=== PATIENT | female | born 1985 | race Caucasian/White ===

== ENCOUNTER 2024-04-19 14:08 | Inpatient (IN) ==
--- NOTE | 2024-04-19 14:39 | Emergency Department Note ---
Impression & Plan Closed fracture dislocation of ankle joint ED Provider Note HISTORY OF PRESENT ILLNESS: Patient is a 39-year-old female presenting with right ankle pain. Patient reports she was hiking this morning when she was coming downhill and holding onto a tree, but she slipped and fell on some leaves and her right ankle went backwards and she had immediate pain and deformity. States that she was unable to get up on her own secondary to instability in her ankle. She states that it seemed to be "flopping around." She denies striking her head or loss of consciousness. She reports that she landed on her buttock. She denies any anticoagulation use. She denies any abdominal pain. Denies any chest pain or shortness of breath. ROS: as above PHYSICAL EXAM: Constitutional: Patient appears in no acute distress. HENT: Head: Normocephalic and atraumatic. Eyes: EOMI, PERRL Mouth/Throat: Mucous membranes moist. Neck: Trachea midline. Neck supple. Musculoskeletal: - EXTREMITY= RLE - Deformity: Obvious deformity to the ankle - Skin / Wounds: Diffuse swelling and ecchymosis to the anterior ankle and to the bilateral malleoli. No open wounds - Pain: Tender to palpation overlying the medial malleolus. Patient is unable to range the ankle secondary to pain. Able to wiggle toes. Able to flex and extend at the knee. - Sensory: SILT throughout (S/S/T/DP/SP nerve distributions) - Motor: Intact (+EHL/FHL/ADF/APF) - Vascular: Brisk cap refill, palpable pulses (2+ DP/PT) Skin: Warm and dry. No rash, erythema, pallor or cyanosis Psychiatric: Appropriate mood and affect for situation. Neurological: Alert and keenly responsive. CN II-XII grossly intact, moving all extremities equally and fully. MDM: - Vitals signs stable. - History obtained via patient. History as above. - Chronic conditions affecting care: none - Differential diagnoses include, but are not limited to: ankle fracture; ankle dislocation; ankle sprain - Order placed for continuous cardiac monitoring. At this time, monitor showed rate of 86 bpm with normal sinus rhythm, per my interpretation. - External medical records reviewed. - IV access obtained to administer pain medications. Patient was given 25 mcg IV fentanyl and 1 g IV Tylenol. - Xray right ankle showed ankle fracture dislocation, per my interpretation. Noted to have widening of the ankle mortise. Radiology notes acute oblique displaced and comminuted distal right fibular fracture with disruption of the ankle mortise. - Xray right tib-fib shows tibiotalar subluxation compatible with distal tibial or fibular syndesmotic and medial ligamentous injuries. - Discussed case with orthopedic surgeon on-call, Dr. Grigsby, at 15:11. He requested that x-rays be performed postreduction in a splint and then get an MRI without contrast of the ankle. Plans to admit to his service for surgical fixation tomorrow. - Patient was given an additional 50 mcg IV fentanyl and reduction of the ankle was performed by myself. Please see procedure note below. She was then placed in a posterior ankle splint and ankle stirrup. Postreduction x-ray shows improved alignment per my interpretation. - Pre op labs, CXR and EKG ordered. - EKG interpreted by myself showed normal sinus rhythm. Rate 79 bpm. QT 390. No acute ischemic changes. - Laboratory workup interpreted by myself showed normal WBC; stable electrolytes; negative hCG - CXR negative for pneumonia, per my interpretation. - Patient admitted to inpatient orthopedic surgery service for further evaluation and management. PROCEDURE: 1. Ankle Dislocation Reduction Indication: right ankle fracture dislocation Verbal consent obtained. Risks and benefits were explained with the usual customary discussion. A time out was taken. Neurovascular examination before the procedure revealed patient able to wiggle toes, sensation intact to light touch throughout nerve distributions of foot and intact PT pulse. The knee was flexed to 90 degrees and countertraction was supplied by nursing staff. I pulled traction on the ankle and rotated the foot medially to help try to close the mortise. "Pop" was felt with movement and this resulted in an easy reduction without complication. Neurovascular examination after the procedure revealed patient able to wiggle toes, sensation intact to light touch throughout nerve distributions of foot and intact PT pulse. The patient had significant pain relief and tolerated the procedure well. Splints applied as below. 2. Splinting Indication: ankle fracture dislocation Verbal consent obtained. Risks and benefits were explained with the usual customary discussion. The injured extremity was identified. The patient was prepped and measured for the placement of a posterior short leg and ankle stirrup ortho-glass splint. Splint applied in the standard fashion over a layer of webril and secured using an elastic bandage. Set into a position of function. Normal neurovascular status after placement verified by me. The patient tolerated the procedure well and the care of the splint was discussed with the patient/family. No complications. ASSESSMENT AND PLAN: Diagnosis: closed fracture dislocation of ankle joint Plan: admit Past Med/Surg History Problem List Closed fracture dislocation of ankle joint (Acute) Social History Smoking Status: Never smoker Preferred Language: [place] Feels Safe at Home: Yes Allergies Allergies Allergy/AdvReac Type Severity Reaction Status Date / Time No Known Allergies Allergy Unverified 04/19/24 14:47 Home Meds Home Medications Medication Instructions Recorded Confirmed norethindrone 1.5 mg-ethinyl 1 tab PO DAILY 04/19/24 04/19/24 estradiol 30 mcg(21)/iron 75 mg(7) tablet (Junel FE 1.5/30 (28)) Results & Data (ED) Vital Signs Vital Signs - 24 hr 04/19/24 13:59 04/19/24 15:00 04/19/24 16:39 Temperature 36.6 C Temperature Source Oral Pulse Rate 83 Pulse Rate [Right Finger] 86 99 H Respiratory Rate 18 18 18 Respiratory Effort / Characteristics Non-Labored Spontaneous Non-Labored Spontaneous Non-Labored Spontaneous Respiratory Depth Normal Normal Normal Respiratory Pattern Regular Regular Regular Blood Pressure 132/90 Blood Pressure [Right Arm] 129/89 126/90 Blood Pressure Mean 104 Blood Pressure Mean [Right Arm] 102 102 Pulse Oximetry 99 97 97 Oxygen Delivery Method Room Air Room Air Room Air Sepsis Recent Fever Within 48 Hours No Sepsis New/Unexplained Change in Mental Status N/A Sepsis Action Taken by Nursing No Action Required Laboratory Data 04/19/24 16:20 04/19/24 16:20 Lab Results 04/19/24 Range/Units 16:20 WBC 10.96 H (4.8-10.8) K/ul RBC 4.20 (4.20-5.40) M/uL Hgb 13.9 (12.0-16.0) g/dl Hct 39.7 (37.0-47.0) % MCV 94.5 (80.0-100.0) fL MCH 33.1 (25.0-34.0) pg MCHC 35.0 (32.0-36.0) g/dL RDW Std Deviation 39.8 (36.4-46.3) fL RDW Coeff of Thee 11.5 (11.5-14.5) % Plt Count 238 (130-400) K/uL MPV 10.7 (9.4-12.4) fL Immature Gran % (Auto) 0.5 % Neut % (Auto) 84.8 % Lymph % (Auto) 9.3 % [place] % (Auto) 4.8 % Eos % (Auto) 0.1 % Baso % (Auto) 0.5 % Neut # (Auto) 9.29 H (1.40-6.50) K/uL Lymph # (Auto) 1.02 L (1.20-3.40) K/uL [place] # (Auto) 0.53 (0.11-0.59) K/uL Eos # (Auto) 0.01 (0.00-0.50) K/uL Baso # (Auto) 0.06 (0.00-0.20) K/uL Immature Gran # (Auto) 0.05 (0.01-0.20) K/uL PT 10.6 (9.0-12.0) Seconds INR 1.0 (0.9-1.1) Sodium 137 (136-145) mmol/L Potassium 4.1 (3.5-5.1) mmol/L Chloride 104 (98-107) mmol/L Carbon Dioxide 26 (21-32) mmol/L Anion Gap 7 (3-11) BUN 15 (6-23) mg/dl Creatinine 0.77 (0.6-1.2) mg/dl Est Cr Clr Drug Dosing 94.1 ml/min eGFR 99.94 BUN/Creatinine Ratio 19.5 (10-20) Glucose 105 H (70-99(Fasting)) mg/dl Calcium 9.5 (8.6-10.3) mg/dl HCG, Qual Negative (Negative) Administered Medications Discontinued Medications Fentanyl Citrate (Fentanyl Citrate Pf 100 Mcg/2 Ml Vial) 25 mcg IV NOW STA Stop: 04/19/24 14:36 Last Admin: 04/19/24 14:49 Dose: 25 mcg Documented By: LOAN Fentanyl Citrate (Fentanyl Citrate Pf 100 Mcg/2 Ml Vial) 50 mcg IV NOW STA Stop: 04/19/24 15:21 Last Admin: 04/19/24 15:30 Dose: 50 mcg Documented By: LOAN Acetaminophen (Ofirmev) 1,000 mg in 100 mls @ 400 mls/hr IV NOW STA Stop: 04/19/24 14:49 Last Infusion: 04/19/24 15:03 Dose: Infused Documented By: Admin: 04/19/24 14:48 Dose: 400 mls/hr Documented By: LOAN Ondansetron HCl (Ondansetron Inj 2 Mg/Ml 2 Ml Vial) 4 mg IV NOW STA Stop: 04/19/24 14:44 Last Admin: 04/19/24 14:47 Dose: 4 mg Documented By: LOAN Imaging Data Radiologist's Impression: Ankle X-Ray 04/19/24 14:35 XR ankle RT 2V HISTORY: 39 years-old Female R ankle pain s/p fall acute right ankle pain status post fall COMPARISON: Tibia and fibula radiographs of same day TECHNIQUE: 3 views of the right ankle FINDINGS: Pathologic poststenotic widening of the medial clear space of the ankle, 1.4 cm. The distal tibiofibular syndesmosis is widened at 9 mm. There is an acute obliquely oriented mildly comminuted distal fibular fracture demonstrating 6 mm lateral at 1.3 cm posterior displacement. Moderate circumferential soft tissue swelling of the ankle. Tibiotalar subluxation. IMPRESSION: 1. Acute, comminuted and displaced distal fibular fracture. 2. Tibiotalar subluxation compatible with associated distal tibial fibular syndesmotic and medial ligamentous injuries. ACT 112: Negative or not required by law. The above report was generated using voice recognition software. It may contain grammatical, syntax or spelling errors. Electronically signed by: Chay Powell M.D. 04/19/2024 3:23 PM Tibia/Fibula X-Ray 04/19/24 14:35 XR tibia fibula RT 2V CLINICAL HISTORY: R ankle pain s/p fall COMPARISON: None FINDINGS: No proximal right fibular fracture is present. There is no right tibial fracture. There is an acute comminuted oblique displaced distal right fibular fracture. Fracture is displaced 1.3 cm. Medial ankle mortise widening is present. IMPRESSION: 1. Acute oblique displaced and comminuted distal right fibular fracture, as described above. 2. Disruption of the ankle mortise with medial ankle mortise widening. 3. No proximal right fibular fracture. No right tibial fracture. ACT 112: Negative or not required by law. Electronically signed by: Darrick Jonas M.D. 04/19/2024 3:17 PM Ankle X-Ray 04/19/24 15:50 EXAM: Radiographs of the Right Ankle 2 Views INDICATION: Post reduction TECHNIQUE: Frontal and lateral views of the right ankle. COMPARISON: No relevant prior studies available. FINDINGS: Limitations: None. Bones/joints: Lucent fracture line noted obliquely on the lateral view suspected to be in the fibula. Normal AP alignment. There is mild widening of the medial mortise. No dislocation. Soft tissues: No abnormality noted. Plaster cast in place. IMPRESSION: 1. Anatomic alignment fracture of the fibula post cast. 2. Widening of the medial mortise. ACT 112: Negative or not required by law. Electronically signed by Dana Still 04-19-2024 4:17 PM Chest X-Ray 04/19/24 16:06 EXAM: Radiograph of the Chest 1 View INDICATION: Undergoing preoperative evaluation. TECHNIQUE: Frontal view of the chest. COMPARISON: No relevant prior studies available. FINDINGS: Lungs and pleural spaces: No consolidation or pulmonary edema. No pleural effusion or pneumothorax. Heart: Shape and configuration within normal limits allowing for technique. Mediastinum: Normal contour. Bones/joints: No fracture, erosion or dislocation. Soft tissues: No abnormality noted. No radiopaque foreign body noted. Upper abdomen: No abnormality noted. IMPRESSION: No abnormality noted. ACT 112: Negative or not required by law. Electronically signed by Daan Still 04-19-2024 4:49 PM Discharge Plan Visit Data Chief Complaint: Ankle Pain Stated Complaint: Ankle Pain ED Provider: Judith Eaton Discharge Problem: Closed fracture dislocation of ankle joint Forms Stand Alone Forms: [facility] Prescriptions Prescriptions: No Action norethindrone-e.estradiol-iron [ FE 1.5/30 (28)] 1.5 mg-30 mcg (21)/75 mg (7) Tablet 1 tab PO DAILY Referrals Referrals: PCP,NO [Primary Care Provider] -
[2024-04-19] MEDS: ONDANSETRON INJ 2 MG/ML 2 ML VIAL IV STA (14:47)
[2024-04-19] MEDS: ACETAMINOPHEN 1,000 MG/100 ML VIAL IV STA (14:48)
[2024-04-19] MEDS: fentaNYL citrate PF 100 MCG/2 ML VIAL IV STA ×2 (14:49→15:30)
--- NOTE | 2024-04-19 15:18 | XRay Report ---
XR tibia fibula RT 2V CLINICAL HISTORY: R ankle pain s/p fall COMPARISON: None FINDINGS: No proximal right fibular fracture is present. There is no right tibial fracture. There is an acute comminuted oblique displaced distal right fibular fracture. Fracture is displaced 1.3 cm. M edial ankle mortise widening is present. IMPRESSION: 1. Acute oblique displaced and comminuted distal right fibular fracture, as described above. 2. Disruption of the ankle mortise with medial ankle mortise widening. 3. No proximal right fibular fracture. No right tibial fracture. ACT 112: Negative or not required by law. Electronically signed by: Darrick Jonas M.D. 04/19/2024 3:17 PM
--- NOTE | 2024-04-19 15:26 | XRay Report ---
XR ankle RT 2V HISTORY: 39 years-old Female R ankle pain s/p fall acute right ankle pain status post fall COMPARISON: Tibia and fibula radiographs of same day TECHNIQUE: 3 views of the right ankle FINDINGS: Pathologic poststenotic widening of the medial clear space of the ankle, 1.4 cm. The distal tibiofibu lar syndesmosis is widened at 9 mm. There is an acute obliquely oriented mildly comminuted distal fib ular fracture demonstrating 6 mm lateral at 1.3 cm posterior displacement. Moderate circumferential s oft tissue swelling of the ankle. Tibiotalar subluxation. IMPRESSION: 1. Acute, comminuted and displaced distal fibular fracture. 2. Tibiotalar subluxation compatible with associated distal tibial fibular syndesmotic and medial lig amentous injuries. ACT 112: Negative or not required by law. The above report was generated using voice recognition software. It may contain grammatical, syntax o r spelling errors. Electronically signed by: Chay Powell M.D. 04/19/2024 3:23 PM
--- NOTE | 2024-04-19 16:18 | XRay Report ---
EXAM: Radiographs of the Right Ankle 2 Views INDICATION: Post reduction TECHNIQUE: Frontal and lateral views of the right ankle. COMPARISON: No relevant prior studies available. FINDINGS: Limitations: None. Bones/joints: Lucent fracture line noted obliquely on the lateral view suspected to be in the fibula. Normal AP alignment. There is mild widening of the medial mortise. No dislocation. Soft tissues: No abnormality noted. Plaster cast in place. IMPRESSION: 1. Anatomic alignment fracture of the fibula post cast. 2. Widening of the medial mortise. ACT 112: Negative or not required by law. Electronically signed by Dana Still 04-19-2024 4:17 PM
--- NOTE | 2024-04-19 16:22 | Orthopedic Consultation ---
Date of Consultation April 19, 2024 Assessment & Plan (1) Closed fracture dislocation of ankle joint: Patient was seen in the emergency department. I advised her that her fracture needs to be surgically fixated. Patient agrees. Informed consent to perform an open reduction internal fixation of right ankle fracture, with syndesmosis stabilization, possible deltoid ligament repair was obtained. Patient was admitted under our service. OR was contacted and we will plan on surgical intervention tomorrow morning at 730. Patient was placed into a posterior U- splint's after being reduced by the ED physician. Preoperative orders were placed. Patient will be n.p.o. after midnight tonight. Supervising Physician Co-Signing Physician Notes I saw and examined the patient, reviewed her imaging, formulated the above plan, performed the substantive portion of the visit, and agree with the above above note. History of Present Illness Reason for Consultation: Right ankle fracture Requesting Physician: Pollo Jacobo MD History of Present Illness Patient is a 39-year-old female presenting with right ankle pain. Patient reports she was hiking this morning when she was coming downhill and holding onto a tree, but she slipped and fell on some leaves and her right ankle went backwards and she had immediate pain and deformity. States that she was unable to get up on her own secondary to instability in her ankle. She states that it seemed to be "flopping around." She denies striking her head or loss of consciousness. She reports that she landed on her buttock. She denies any anticoagulation use. She denies any abdominal pain. Denies any chest pain or shortness of breath. Allergies Allergy/AdvReac Type Severity Reaction Status Date / Time No Known Allergies Allergy Unverified 04/19/24 14:47 Home Medications Medication Instructions Recorded Confirmed Type norethindrone 1.5 mg-ethinyl 1 tab PO DAILY 04/19/24 04/19/24 History estradiol 30 mcg(21)/iron 75 mg(7) tablet ( (28)) Patient History Social History Smoking Status: Never smoker Hx Alcohol Use: No Hx Substance Use: No Preferred Language: [place] [employer] Required: No Beliefs That Will Affect Care: None Current Living Situation: Alone Other Information That Helps Us Care for You: No Feels Safe at Home: Yes Safety Concerns: Feels Safe At This Time Assistive Devices: None Review of Systems Review of Systems: All systems reviewed & are unremarkable except as noted in Subjective Physical Exam Physical Exam: Right ankle: Edema and exquisite TTP over medial and lateral malleolus. Ecchymosis over anterior aspect of ankle. ROM not tested. Able move toes and detect light sensation to touch over pads of digits. NV intact. Results & Data Vital Signs (Past 12 Hours) Vital Signs Temp Pulse Pulse Resp BP BP Pulse Ox 04/19/24 15:00 86 18 129/89 97 04/19/24 13:59 36.6 C 83 18 132/90 99 O2 Del Method 04/19/24 15:00 Room Air 04/19/24 13:59 Room Air Diagnostic Findings Impressions Tibia/Fibula X-Ray 04/19/24 14:35 XR tibia fibula RT 2V CLINICAL HISTORY: R ankle pain s/p fall COMPARISON: None FINDINGS: No proximal right fibular fracture is present. There is no right tibial fracture. There is an acute comminuted oblique displaced distal right fibular fracture. Fracture is displaced 1.3 cm. Medial ankle mortise widening is present. IMPRESSION: 1. Acute oblique displaced and comminuted distal right fibular fracture, as described above. 2. Disruption of the ankle mortise with medial ankle mortise widening. 3. No proximal right fibular fracture. No right tibial fracture. ACT 112: Negative or not required by law. Electronically signed by: Darrick Jonas M.D. 04/19/2024 3:17 PM Ankle X-Ray 04/19/24 15:50 EXAM: Radiographs of the Right Ankle 2 Views INDICATION: Post reduction TECHNIQUE: Frontal and lateral views of the right ankle. COMPARISON: No relevant prior studies available. FINDINGS: Limitations: None. Bones/joints: Lucent fracture line noted obliquely on the lateral view suspected to be in the fibula. Normal AP alignment. There is mild widening of the medial mortise. No dislocation. Soft tissues: No abnormality noted. Plaster cast in place. IMPRESSION: 1. Anatomic alignment fracture of the fibula post cast. 2. Widening of the medial mortise. ACT 112: Negative or not required by law. Electronically signed by Dana Still 04-19-2024 4:17 PM
[2024-04-19 16:49] LABS: BUN Creatinine Ratio 19.5 (10-20); Basophils # (auto) 0.06 K/uL (0.00-0.20); Basophils % (auto) 0.5 %; Calcium 9.5 mg/dl (8.6-10.3); Creatinine Clr Calc Pharmacy 94.1 ml/min; Eosinophils # (auto) 0.01 K/uL (0.00-0.50); Eosinophils % (auto) 0.1 %; Hematocrit (blood only) 39.7 % (37.0-47.0); Hemoglobin 13.9 g/dl (12.0-16.0); Immature Granulocytes # (auto) 0.05 K/uL (0.01-0.20); Immature Granulocytes % (auto) 0.5 %; Lymphocytes # (auto) 1.02 K/uL (1.20-3.40); Lymphocytes % (auto) 9.3 %; Mean Corpuscular Hemoglobin 33.1 pg (25.0-34.0); Mean Corpuscular Volume 94.5 fL (80.0-100.0); Mean Platelet Volume 10.7 fL (9.4-12.4); Monocytes # (auto) 0.53 K/uL (0.11-0.59); Monocytes % (auto) 4.8 %; Neutrophils # (auto) 9.29 K/uL (1.40-6.50); Neutrophils % (auto) 84.8 %; Platelet Count 238 K/uL (130-400); Potassium 4.1 mmol/L (3.5-5.1); RDW Coefficient of Variation 11.5 % (11.5-14.5); RDW Standard Deviation 39.8 fL (36.4-46.3); White Blood Count 10.96 K/ul (4.8-10.8)
--- NOTE | 2024-04-19 16:50 | XRay Report ---
EXAM: Radiograph of the Chest 1 View INDICATION: Undergoing preoperative evaluation. TECHNIQUE: Frontal view of the chest. COMPARISON: No relevant prior studies available. FINDINGS: Lungs and pleural spaces: No consolidation or pulmonary edema. No pleural effusion or pneumothorax. Heart: Shape and configuration within normal limits allowing for technique. Mediastinum: Normal contour. Bones/joints: No fracture, erosion or dislocation. Soft tissues: No abnormality noted. No radiopaque foreign body noted. Upper abdomen: No abnormality noted. IMPRESSION: No abnormality noted. ACT 112: Negative or not required by law. Electronically signed by Dana Still 04-19-2024 4:49 PM
[2024-04-19 16:54] LABS: Pregnancy Test, Serum Negative (Negative)
[2024-04-19 16:59] LABS: Prothrombin Time 10.6 Seconds (9.0-12.0)
--- NOTE | 2024-04-19 18:46 | Magnetic Resonance Report ---
EXAM: MR ankle RT wo con CLINICAL HISTORY: RIGHT DISTAL FIBULA FX TODAY WHEN HIKING PAIN. PT HAVING SURGERY TOMORROW MORNING INPATIENT TECHNIQUE: Multiplanar multi-sequential MRI of the right ankle joint was performed without IV contrast administration. Images were sent through PACS for diagnostic interpretation. COMPARISON: None. FINDINGS: Bones: Oblique fracture of the lateral malleolus and distal fibular metaphysis extending through the tibiofibular syndesmosis with gapping estimated 4.1 mm. Subtle marrow edema at the posterior aspect of the distal tibia and tarsal bones. Joints: Normal appearance of the subtalar, and other ankle joints. Mild to moderate ankle joint effusion. Articular surfaces are smooth without erosions or osteophyte formation. Compartmental tendons: The tibialis posterior, flexor digitorum, and flexor hallucis longus are unremarkable. Fluid is seen tracking along the tibialis posterior tendon sheath. The tibialis anterior, extensor digitorum, and extensor hallucis longus are unremarkable. The peroneus longus and brevis are unremarkable. The Achilles tendon is intact in its signal characteristics, and the pre-Achilles fat is clear. Articulations: The articulations of the tibiotalar, posterior subtalar, talonavicular anterior, subtalar, cuboidometatarsal, cuneometatarsal, intertarsal, and tarsometatarsal were unremarkable. Sinus tarsi and plantar fascia: The sinus tarsi are unremarkable. The plantar fascia is unremarkable. Ligaments: The deltoid ligament Shows fuzzy outlines with abnormal high signal. The calcaneofibular ligament is intact. Intact anterior and posterior talofibular ligament. The intertarsal ligaments are unremarkable. The Calcaneocuboid and calcaneonavicular ligament are intact. Intact, intertarsal ligaments. Intact cuneometatarsal ligaments. Intact Lisfranc ligament. Muscles: No muscle atrophy or abnormal signal changes. Soft Tissues: Marked periarticular musculature. IMPRESSION: Oblique fracture of the lateral malleolus and distal fibular metaphysis extending through the tibiofibular syndesmosis. distal tibial and tarsal marrow edema. Sprained deltoid ligament. Ankle joint effusion. Fluid along the tibialis posterior tendon sheath, Electronically signed by Michael Yepez 04-19-2024 6:45 PM
[2024-04-19] MEDS: ACETAMINOPHEN 325 MG TAB PO PRN (21:43)
[2024-04-20] MEDS: oxyCODONE/ACETAMINOPHEN 5mg/325mg TAB PO PRN (01:00)
[2024-04-20] MEDS ORDERED: PROPOFOL IV EMULSION 10 MG/ML 20 ML VIAL IV ONE (07:00)
[2024-04-20] MEDS ORDERED: fentaNYL citrate PF 100 MCG/2 ML VIAL ONE ×2 (07:00→08:42)
[2024-04-20] MEDS ORDERED: LIDOCAINE 2% 2 ML VIAL/AMP(20MG/ML) INFIL ONE (07:00)
[2024-04-20] MEDS ORDERED: MIDAZOLAM HCL 1 MG/ML 2ML VIAL ONE (07:00)
[2024-04-20] MEDS ORDERED: DEXAMETHASONE SOD INJ 4 MG/ML VIAL ONE (07:00)
[2024-04-20] MEDS ORDERED: ONDANSETRON INJ 2 MG/ML 2 ML VIAL ONE (07:00)
[2024-04-20] MEDS ORDERED: ATROPINE SULFATE 0.1 MG/ML 10ML SYR IV PRN (07:21)
[2024-04-20] MEDS ORDERED: ONDANSETRON INJ 2 MG/ML 2 ML VIAL IV PRN ×2 (07:21→09:44)
[2024-04-20] MEDS ORDERED: ePHEDrine sulfate 50 MG/ML AMP IV PRN (07:21)
[2024-04-20] MEDS ORDERED: fentaNYL citrate PF 100 MCG/2 ML VIAL IV PRN (07:21)
--- NOTE | 2024-04-20 07:21 | Anesthesiology Consultation ---
Date of Service April 20, 2024 Assessment & Plan Chart Review Chart Review: Acceptable Risk for Surgery and Patient NOT seen in Pre Admission Testing Consults Requested none History Surgery Operation Date: 04/20/24 07:30 Proposed Procedures p Right Ankle Open Reduction Internal Fixation with Syndesmosis Stablilization - Pollo Jacobo MD Height/Weight Height: 5 ft 4 in Weight: 72.9 kg Allergies Allergy/AdvReac Type Severity Reaction Status Date / Time No Known Allergies Allergy Unverified 04/19/24 14:47 Medications Home Medications Medication Instructions Recorded Confirmed Last Taken norethindrone 1.5 mg-ethinyl 1 tab PO DAILY 04/19/24 04/19/24 04/18/24 09:00 estradiol 30 mcg(21)/iron 75 mg(7) tablet (Junel FE 1.5/30 (28)) Active Medications Generic Name Dose Route Start Last Admin Trade Name Freq PRN Reason Stop Dose Admin Acetaminophen 650 mg 04/19/24 16:08 04/20/24 05:38 Acetaminophen 325 Mg Tab PO 05/19/24 16:07 650 mg Q6H PRN Administration Fever or Headache Oxycodone/Acetaminophen 1 - 2 tab 04/19/24 16:08 04/20/24 01:00 Oxycodone/Acetaminophen 5mg/325mg Tab PO 05/03/24 16:07 1 tab Q4H PRN Administration Pain NPO Date Last Intake of Fluids: 04/20/24 Time Last Intake of Fluids: 05:38 Last Intake of Fluids Comment: tynenol 650 mg sips onlly Date Last Intake of Solids: 04/19/24 Time Last Intake of Solids: 22:30 Social History Smoking Status: Never smoker Hx Alcohol Use: No Hx Substance Use: No Physical Exam Vital Signs Last Vital Signs Temp 36.8 C 04/19/24 22:00 Pulse 79 04/19/24 22:00 Resp 14 04/19/24 22:00 BP 145/84 H 04/19/24 22:00 Pulse Ox 97 04/19/24 22:00 O2 Del Method Room Air 04/19/24 22:00 Testing Laboratory Results 04/19/24 16:20 04/19/24 16:20 PT 10.6 Seconds (9.0-12.0) 04/19/24 16:20 INR 1.0 (0.9-1.1) 04/19/24 16:20 Blood Type B Negative 04/19/24 16:20 Antibody Screen NEGATIVE 04/19/24 16:20
--- NOTE | 2024-04-20 07:28 | Orthopedic Progress Note ---
Date of Service April 20, 2024 Assessment & Plan (1) Closed fracture dislocation of ankle joint: Plan: Reviewed the consent form with the patient. Answered all of her questions about surgery and aftercare. Plan to proceed to the operating room this morning . May be able to discharge home after surgery depending on her pain control and mobility. Admission and Anticipated Discharge Date Admission Date: April 19, 2024 Subjective patient seen and examined this morning in the PACU. She did well overnight. Splint is fitting her well. Pain is adequately controlled. Has not anything to eat or drink since midnight. She is ready for surgery today. Physical Exam Physical Exam: Right ankle: Splint is in good position. Exposed toes are warm and well- perfused. She wiggles all of her toes. Sensory intact to light touch over the toes. Results & Data Vital Signs (Past 12 Hours) Vital Signs Temp Pulse Resp BP Pulse Ox O2 Del Method 04/19/24 22:00 Room Air 04/19/24 22:00 36.8 C 79 14 145/84 H 97 Room Air 04/19/24 20:00 93 H 18 136/85 97 Room Air
[2024-04-20] MEDS: ceFAZolin 2000MG 2,000 MG/15 ML SYR IV SCH (07:39)
[2024-04-20] MEDS ORDERED: KETOROLAC 30 MG/ML VIAL ONE (09:09)
[2024-04-20] MEDS ORDERED: PROPOFOL IV EMULSION 10 MG/ML 100 ML VIAL IV ONE (09:12)
--- NOTE | 2024-04-20 09:34 | Operative Report ---
Post Operative Report Pre & Post Diagnosis Operation Date: 04/20/24 07:30 Preoperative diagnosis: Right ankle fracture and deltoid ligament disruption. Postop diagnosis: Right ankle fracture and deltoid ligament disruption. I identified the patient and participated in the time-out.: Yes Procedure Operation Date: 04/20/24 07:30 Open reduction internal fixation right ankle fracture, and deltoid ligament repair. Surgeon Pollo Jacobo MD Fishing Tool Supervisor RATNA Garza PA-C. No resident or fellow was available to assist. Estimated Blood Loss 10 Findings Consistent with Post-Op Diagnosis Specimens None Anesthesia Type General Regional Complications none Disposition Disposition: Recovery Room Indications 39-year-old female, injured her right ankle while hiking [employer] yesterday. She slipped on some leaves and had immediate onset of pain and deformity in her ankle. She had to be brought out of the pro by emergency medical services and transported the emergency room where x-rays demonstrated a displaced lateral malleolus fracture with a large amount of medial clear space widening. She underwent a closed reduction in the emergency room and splinting. MRI was obtained which demonstrated disruption of the deltoid ligament in addition to the lateral malleolus fracture. She was seen and examined in the emergency room. This is an unstable ankle injury. Surgery was recommended to reduce and stabilize her ankle to give her the best possible long-term function. After reviewing all the risks and benefits of surgery, alternatives to surgery, and expected outcomes she elected to proceed. All questions were answered. Informed consent was signed. Description of Procedure Patient was identified in the preoperative holding area where her surgical site was marked. She was given popliteal and saphenous nerve blocks by anesthesia then brought back to the operating room where she moved onto the operating room table and general anesthesia was administered. A bump was placed underneath the operative hip. All bony prominences were padded. Perioperative antibiotics were administered. She was prepped and draped in the usual sterile fashion. Prior to incision a multidisciplinary timeout was called. All in the room were in agreement. I began by exsanguinating the limb with an Esmarch bandage. Tourniquet was inflated 250 mmHg. An 8 cm long incision was made starting at the tip of the lateral malleolus and extending proximally. I dissected down through subcutaneous tissues. Fracture hematoma was encountered was evacuated. The fibula fracture was easily identified. We searched for the superficial peroneal nerve proximally in the wound but we did not encounter it in our dissection. Fracture was then exposed subperiosteally and a small amount of soft tissue on the anterior lateral aspect of the ankle was excised in order to prevent anterolateral ankle impingement after surgery. Fracture was then anatomically reduced with a pointed tenaculum clamp. A Arthrex 4 hole distal fibular locking plate was then secured to the fibula with BB tacks. We checked the position of the plate and our fracture reduction under fluoroscopy which I was happy with. I then secured the plate proximally with two 3.5 mm cortical screws. The distal locking holes were then filled by placing each of the screws under fluoroscopic guidance in unicortical fashion. BB tacks were removed. Another 3.5 mm cortical screw was placed proximally in the plate. Once this was complete we checked a shuck test of the fibula. Syndesmosis appeared reasonably stable. Fluoroscopy was brought in. I was happy with the screw lengths and the hardware position. The fracture remained anatomically reduced. I then performed a stress test. With a valgus stress on the ankle the medial ankle joint opened up widely consistent with a deltoid ligament disruption. Therefore deltoid ligament repair was indicated. A damp sponge was placed in the lateral wound while we turned our attention to the medial aspect of the ankle. A 4 cm long incision was then made centered over the anterior aspect of the medial malleolus. I dissected down through subcutaneous tissues. Saphenous vein and nerve were identified and the wound and dissected out so they could be mobilized both anteriorly and posteriorly. We were able to immediately visualize the deltoid ligament disruption. The entirety of the anterior medial capsule had ripped off the anterior aspect of the distal tibia, and medial malleolus. The posterior tibial tendon was identified deep in the wound. The deep deltoid ligament attachment to the talu s was not easily visualized. Therefore I elected to not place an internal brace and instead simply repair the deltoid ligament using fiber tack anchors on the tibia. A total of 5 fiber tack anchors were placed starting at the most distal aspect of the medial malleolus. While placing the second anchor the brass reclaimer broke off inside of the bone. There was no metal protruding from the bone and the anchor was still stable. Therefore the metal was left in position. Once all of her anchors have been placed these were passed in horizontal mattress fashion in order to the repair of the deltoid ligament. After passing all the sutures they were tied down starting at the anterior aspect of the distal tibia and moving towards the medial malleolus. For a final 2 anchors by the medial malleolus after tying down the sutures we then passed these in a belt suspenders fashion back into the periosteum of the medial malleolus for further compression on the repair. The sutures were then cut and tied down. Fluoroscopy was brought in and we rechecked our valgus stress to the ankle. There was no longer any opening in the medial ankle. External rotation stress test was negative. Therefore no syndesmotic stabilization was indicated. Final fluoroscopic images were then and saved to the system. Wounds were irrigated with copious amounts normal saline. Tourniquet was let down to 81 minutes and meticulous hemostasis was ensured. The deep dermis was closed with 3-0 Vicryl in an inverted interrupted fashion. Skin was closed with 3 oh nylons and horizontal mattress fashion. Sterile dressing was applied followed by a well-padded posterior and U plaster slab splint holding the ankle at neutral. Patient was then awoke from anesthesia and transferred to recovery room in stable condition. Postoperative course: Patient will be readmitted to the floor from the recovery room. Assuming her pain is under good control she may discharge home later today. She will be nonweightbearing for the next 4 weeks. 2 weeks from now she we will have her splint removed and transition to a walking boot so she can remove this did begin ankle range of motion exercises. Aspirin for DVT prophylaxis. I attest to the content of the Intraoperative Record and any orders documented therein. Any exceptions are noted below.
[2024-04-20] MEDS ORDERED: oxyCODONE/ACETAMINOPHEN 5mg/325mg TAB PO PRN ×2 (09:44)
--- NOTE | 2024-04-20 09:44 | Operative Report ---
Post Operative Report Pre & Post Diagnosis Operation Date: 04/20/24 07:30 Pre-Op Diagnosis: Closed fracture dislocation of ankle joint Post-Op Diagnosis: Closed fracture dislocation of ankle joint I identified the patient and participated in the time-out.: Yes Procedure Operation Date: 04/20/24 07:30 Actual Procedures p Right Ankle Open Reduction Internal Fixation with Syndesmosis Stablilization and Deltoid Ligament Repair(Right) - Pollo Jacobo MD Surgeon Pollo Jacobo MD Roller Repairer RATNA Garza PA-C. No resident or fellow was available to assist. Estimated Blood Loss 10 Findings Consistent with Post-Op Diagnosis Specimens none Description of Procedure I was present during the entire case assisting with positioning, prepping, draping, wound retraction, wound closure, dressing and splint application. No fellow present. Please see Dr. Jacobo procedure note for specifics of the case. I attest to the content of the Intraoperative Record and any orders documented therein. Any exceptions are noted below.
--- NOTE | 2024-04-20 09:51 | Fluoroscopy Report ---
FL ankle RT 2V CLINICAL HISTORY: RIGHT ANKLE ORIF COMPARISON STUDY: Right ankle radiographs and MRI of the right ankle April 19, 2024. FLUOROSCOPY TIME: 17.2 seconds. Ka,r: 0.64 mGy FLUOROSCOPIC IMAGES: 4 FINDINGS: Fluoroscopy was provided during open reduction and internal fixation of the right ankle. Pl ate and screw fixation of the fibular fracture is noted. Alignment is anatomic. There are no unexpect ed radiopaque foreign bodies. There are also postoperative findings within the medial malleolus. Ther e are no unexpected radiopaque foreign bodies. Tibiotalar alignment is anatomic. IMPRESSION: Fluoroscopy provided during open reduction and internal fixation of the right ankle. ACT 112: Negative or not required by law. Electronically signed by: Darrick Jonas M.D. 04/20/2024 9:50 AM
[2024-04-20] MEDS: BUPIVACAINE 0.25% PF 30 ML VIAL ONE (10:33)
[2024-04-20] MEDS: ONDANSETRON INJ 2 MG/ML 2 ML VIAL IV PRN (10:34)
--- NOTE | 2024-04-20 11:09 | Anesthesiology Progress Note ---
Date of Service April 20, 2024 Anesthesia Post Procedure Vital Signs Vital Signs: Temp Pulse Pulse Pulse Resp BP BP 04/20/24 10:54 36.6 C 76 18 121/75 04/20/24 10:25 36.5 C 89 16 102/64 04/20/24 10:14 36.9 C 90 21 108/56 L 04/20/24 10:05 86 16 103/66 04/20/24 09:55 92 H 13 100/63 04/20/24 09:45 36.2 C L 82 20 102/55 L 04/19/24 22:00 04/19/24 22:00 36.8 C 79 14 04/19/24 20:00 93 H 18 04/19/24 18:00 84 18 04/19/24 16:39 99 H 18 04/19/24 15:00 86 18 04/19/24 13:59 36.6 C 83 18 132/90 BP Pulse Ox O2 Del Method O2 Flow Rate 04/20/24 10:54 97 Room Air 04/20/24 10:25 98 Room Air 04/20/24 10:14 96 Room Air 04/20/24 10:05 98 Room Air 04/20/24 09:55 99 Oxymask 5 04/20/24 09:45 97 Oxymask 5 04/19/24 22:00 Room Air 04/19/24 22:00 145/84 H 97 Room Air 04/19/24 20:00 136/85 97 Room Air 04/19/24 18:00 125/88 97 Room Air 04/19/24 16:39 126/90 97 Room Air 04/19/24 15:00 129/89 97 Room Air 04/19/24 13:59 99 Room Air Pain Intensity Right Ankle: Pain Intensity: 4 Transfer of Care Handoff Completed per policy Notes Mental Status: alert / awake / arousable Patient Amnestic to Procedure: Yes Nausea / Vomiting: adequately controlled Pain: adequately controlled Airway Patency, RR, SpO2: stable & adequate BP & HR: stable & adequate Hydration State: stable & adequate Anesthetic Complications: no major complications apparent and Pt Satisfied with anesthetic care
[2024-04-20 11:54] VITALS: RESP 16
[2024-04-20 13:23] VITALS: TEMP 98.8; O2SAT 97
[2024-04-20] MEDS: INFLUENZA VACC TS2024-25(6m+)/PF (IIV3) 0.5mL Syr IM ONE (14:08)
[2024-04-20 14:35] VITALS: BP 145/84; PULSE 76
--- NOTE | 2024-04-21 20:49 | Electrocardiogram Report ---
Test Reason : Blood Pressure : */* mmHG Vent. Rate : 79 BPM Atrial Rate : 79 BPM P-R Int : 114 ms QRS Dur : 76 ms QT Int : 390 ms P-R-T Axes : 53 20 28 degrees QTcB Int : 447 ms Normal sinus rhythm Normal ECG No previous ECGs available Confirmed by Piyush Ledezma ([id number]) on 04/21/2024 8:48:43 PM Referred By: NO PCP Confirmed By: Piyush Ledezma
--- NOTE | 2024-04-22 14:21 | Discharge Summary ---
Date of Service April 22, 2024 Admission HPI Per Admitting Provider Patient is a 39-year-old female presenting with right ankle pain. Patient reports she was hiking this morning when she was coming downhill and holding onto a tree, but she slipped and fell on some leaves and her right ankle went backwards and she had immediate pain and deformity. States that she was unable to get up on her own secondary to instability in her ankle. She states that it seemed to be "flopping around." She denies striking her head or loss of consciousness. She reports that she landed on her buttock. She denies any anticoagulation use. She denies any abdominal pain. Denies any chest pain or shortness of breath. Admission Exam Per Admitting Provider Right ankle: Edema and exquisite TTP over medial and lateral malleolus. Ecchymosis over anterior aspect of ankle. ROM not tested. Able move toes and detect light sensation to touch over pads of digits. NV intact. Principal Diagnosis Right ankle fracture; deltoid ligament tear Discharge Exam Right ankle: Edema and exquisite TTP over medial and lateral malleolus. Ecchymosis over anterior aspect of ankle. ROM not tested. Able move toes and detect light sensation to touch over pads of digits. NV intact. Discharge Data Allergies Allergy/AdvReac Type Severity Reaction Status Date / Time No Known Allergies Allergy Unverified 04/19/24 14:47 Consultations 04/19/24 16:05 ED Decision to Admit Stat Procedures Performed Operation Date: 04/20/24 07:30 Actual Procedures p Right Ankle Open Reduction Internal Fixation with Syndesmosis Stablilization and Deltoid Ligament Repair(Right) - Pollo Jacobo MD Ordered Studies 04/19/24 15:19 MRI Ankle [MR ankle RT wo con] Stat 04/20/24 FL ankle RT 2V Routine 04/20/24 07:22 US - OR guided needle placemen Stat Hospital Course (1) Closed fracture dislocation of ankle joint: Patient was admitted overnight. She was n.p.o. after midnight and we performed an open reduction internal fixation of her right ankle fracture with deltoid ligament repair. She did very well postoperatively and was discharged home on the day of the procedure. She will follow-up in our office in 2 weeks. Total Time Total Time Spent Total Time Spent (In Minutes): 25 mins Discharge Plan Discharge Items Patient Disposition: Home - Self-Care Reason For Visit: RIGHT ANKLE ORIF Discharge Diagnosis: Right ankle fracture ORIF; Deltoid ligament repair Activity: As commented below Lifting: None Bathing: Keep incision dry Bathing Comment: may shower tomorrow Sexual Activity: Wait until after follow-up appointment Exercise/Sports: Wait until after follow-up appointment Driving/Machine Use: No driving until cleared by facility specialist Weightbearing: Left non-weightbearing Weightbearing Comment: with crutches Non-emergency contact: Surgeon Call non-emergency contact if: you have any medication questions, your pain is not controlled, your temperature is above 101.5, your wound has increased drainage and your wound pain has increased Follow-up/Referrals: PCP,NO [Primary Care Provider] - Diet: Regular Addtl Attending Provider Instructions: Post-operative Instructions Dear Patient and Family/Friends, Before you are discharged from the hospital, it is important to know what to expect when you get home after surgery. To that end, we have created this sheet of discharge instructions which covers many commonly asked questions. Make sure you go through this sheet in its entirety with your nurse before you are discharged. Please note that we will go over the specifics of your surgery and recovery when you return for your first post-operative visit. Sincerely, Dr. Jacobo Medications 1. Oxycodone 5 mg: Take 1-2 tabs every 4-6 hours as needed for pain control. This was sent to your pharmacy 2. Diclofenac sodium 75 mg: Take 1 tab twice daily for postoperative pain and inflammation. This was also sent to your pharmacy 3. Aspirin 81 mg: Take 1 tab daily for the first 30 days postoperatively for blood clot prevention. Please purchase this medication 4. Extra strength Tylenol 500 mg: Take 2 tabs every 6-8 hours as needed for additional supplemental pain control. Please purchase this medication as well Pain Expect to be in a fair amount of pain after surgery. Remember, our goal is not to eliminate your pain, but to make it tolerable. It is a good idea to stay ahead of your pain by taking the medications you were prescribed once you get home. Typically, the pain starts improving 3-7 days after surgery. You should start weaning off the narcotic pain medication (oxycodone, hydrocodone, hydromorphone, morphine) as soon as your pain improves. Please call our office if your pain is not adequately controlled. Ice Ice your operative site at least 5 times a day for 15-30 minutes at a time. Make sure you have a thin cloth between the ice or cooling unit and your skin to prevent amador bite. This is especially important if you received a nerve block. Continue icing your operative site for the first 5-7 days after surgery, then as needed. Diet/Nausea/Vomiting Start by drinking clear liquids and eating crackers. If you can tolerate this, then you may resume your normal diet. If you feel nauseated or vomit, take Zofran/ondansetron (if prescribed). Please call our office if you have int ractable nausea or vomiting, or, if after hours, you may go to the Emergency Room for help. Constipation Constipation is a common side effect of narcotic pain medication. If you have not had a bowel movement within 2 days after surgery, we recommend purchasing an over the counter laxative such as Milk of Magnesia, Dulcolax, or Miralax from a local pharmacy, and taking it as instructed. Call our clinic if any questions. Nerve block The anesthesia team sometimes places a nerve block to help with post-operative pain control. This results in significant numbness and inability to move the extremity. The nerve block usually wears off in 8-12 hours, but sometimes can last up to 24 hours. Please call our office if you are still unable to move your extremity after 24 hours, unless you received a pain pump to take home. Nerve blocks typically wear off quickly, so start taking pain medication as soon as you start feeling soreness near your surgical site. Weight bearing and Range of Motion. Do not bear any weight through your operative extremity immediately after surgery. If you had upper extremity surgery, do not lift anything with that arm. If you are in a knee brace, keep it locked in place until your follow-up. We will discuss your weight bearing, range of motion, and lifting restrictions in detail at your first post-operative appointment. Continuous Passive Motion (CPM) Machine If you were prescribed a CPM machine, it will start after your first post- operative appointment, at which time we will give you instructions on the range of motion settings and duration of treatment Physical therapy You will be given a prescription for physical therapy or occupational therapy at your first post-operative appointment. Typically, patients start therapy within 1 week of surgery Wound care and showering We will inspect your wound at your first post-operative visit, and may do a dressing change at that time. Most patients will be in a water-proof dressing that is removed 14 days after surgery. It is normal to see some dried blood on the dressing. Do not remove your dressing, paper strips or sutures yourself unless you are given permission. Showering is allowed the day after surgery. Do not scrub or remove any dressings. The wound should not be submerged underwater (i.e. in a bathtub or pool) until 4 weeks after surgery RAEGAN stockings If you were given white stockings, these are to be worn at all times except to shower (on both legs) for the first 2 weeks after surgery. Driving You may not drive while taking narcotic pain medication or while in a cast, splint, sling or brace. You, the patient, need to make the final determination about when you are safe to drive, however, the earliest you may consider driving after surgery is below: Hand/Wrist/Elbow Surgery: 3 days Shoulder Surgery: 2 weeks Hip,/Knee/Ankle Surgery: 4 weeks Fracture repair: 6 weeks Return to Work Your return to work depends on what surgery was done and what type of work you do. Please bring any paperwork your employer needs completed to your first post-operative visit. Also, bring a description of your job duties, as this helps us to understand what risks you may face at work. Travel Avoid long distance travel (greater than 1 hour) in airplanes and cars for the first 6 weeks after surgery. If you must travel, you need to have a Doppler ultrasound done before you travel to rule out a blood clot in your legs. Follow-up You should have a follow-up appointment already scheduled 1-2 days after surgery. If not, please contact our office to make this appointment before you leave the hospital. Our office number is listed below under contact informati on. When to call the office It is normal to have swelling and bruising in the limb that was operated on. This will improve with time. It is also normal to have fevers for the first 2 days after surgery. Reasons you should call your doctor include: Uncontrolled pain; Nausea, vomiting, or constipation that does not improve with medication; Fevers over 101.5, chills, sweats; Drainage or bleeding from the wound; Foul odor; Spreading areas of redness; Any other concerns. Contact Information Please call Dr. Jacobo's office at [phone] with any concerns. Pending Studies at Discharge: No Stand-Alone Forms: [facility], Smoking Cessation Medications and DC Order Prescriptions: New oxycodone 5 mg tablet 5 mg PO Q4H MDD Ongoing. Max 6/day Qty: 20 0RF diclofenac sodium 75 mg tablet,delayed release (DR/EC) 75 mg PO BID 30 Days Qty: 60 1RF Held norethindrone-e.estradiol-iron [ (28)] 1.5 mg-30 mcg (21)/75 mg (7) Tablet 1 tab PO DAILY Hold Instructions: Resume on 05/18/24. Discharge Orders: Discharge Order (Routine); Ordered 04/20/24 Ordered By: Lul Staton/Other Patient Handouts: Ankle Fx ORIF Surg, Understanding an Ankle Fracture Admission Data Admit Date/Time: 04/19/24 16:08 Attending Provider: Pollo Jacobo Admit Provider: Pollo Jacobo Primary Care Provider: PCP,NO Other Providers: Pollo Jacobo Other Interventions: Discharge Summary Assessment (RN) Last Done: 04/20/24 14:33
--- NOTE | 2024-04-22 15:08 | Electrocardiogram Report ---
Test Reason : Blood Pressure : */* mmHG Vent. Rate : 79 BPM Atrial Rate : 79 BPM P-R Int : 120 ms QRS Dur : 82 ms QT Int : 418 ms P-R-T Axes : 29 92 46 degrees QTcB Int : 479 ms Poor data quality, interpretation may be adversely affected Normal sinus rhythm Rightward axis Borderline ECG When compared with ECG of 19-Apr-2024 16:31, Questionable change in QRS axis Confirmed by Piyush Ledezma ([id number]) on 04/22/2024 3:08:42 PM Referred By: NO PCP Confirmed By: Piyush Ledezma
== END 2024-04-20 15:09 | disposition home or self-care (01) | DRG 494 ==
LOC: ED 14:08 → EDINP 16:08 → 3N 21:30